=== PATIENT | female | born 1960 | race African-American/Black ===

== ENCOUNTER 2017-05-24 08:03 | Inpatient (IN) | payer MEDICAID ==
[~2017-05-24] VITALS: Ht 144.8 cm; Wt 59.2 kg
[2017-05-24] VITALS (16 sets, daily range): BP systolic 97–149; BP diastolic 50–94
[2017-05-24] MEDS ORDERED: FAMOTIDINE 20MG/2ML VIAL IV ONE (08:45)
[2017-05-24] MEDS ORDERED: DIPHENHYDRAMINE 50MG/ML VIAL IV ONE (08:45)
[2017-05-24] MEDS ORDERED: METHYLPREDNISOLONE SOD SUCC 125 MG/2 ML VIAL IV ONE (08:45)
[2017-05-24] MEDS ORDERED: EPINEPHRINE 1:1000 1 MG/ML AMP SUBCUT ONE (08:45)
[2017-05-24 09:06] LABS: BASOPHILS % 0.3 % (0.0-2.0); HEMATOCRIT. 35.9 % (36.0-48.0); HEMOGLOBIN. 12.2 g/dL (12.0-16.0); LYMPHOCYTES % 9.8 % (20.0-50.0); MEAN CORPUSCULAR HEMOGLOBIN 32.8 pg (28.0-32.0); MEAN CORPUSCULAR VOLUME 96.6 fL (81.0-99.0); MEAN PLATELET VOLUME 6.4 fl (7.4-10.4); MONOCYTES % 6.5 % (2.0-8.0); NEUTROPHILS % 78.4 % (40.0-76.0); PLATELET 345 x1000/uL (130-400); RED BLOOD CELL COUNT 3.71 mill/uL (4.2-5.4); RED CELL DISTRIBUTION WIDTH 12.8 % (11.6-14.6)
[2017-05-24 09:12] LABS: INR 1.1; PROTHROMBIN TIME 11.4 sec (9.4-11.6)
[2017-05-24 09:15] LABS: CHLORIDE 99 mEq/L (98-107)
[2017-05-24] MEDS ORDERED: LORAZEPAM 2MG/ML CPJ IM ONE (09:15)
[2017-05-24] MEDS ORDERED: SODIUM CHLORIDE 0.9% 1,000 ML IV ONE (09:16)
[2017-05-24] MEDS ORDERED: LORAZEPAM 2MG/ML CPJ IV ONE (09:30)
[2017-05-24] MEDS ORDERED: LEVETIRACETAM 1000MG/100ML 100 ML IV ONE (10:15)
[2017-05-24 12:22] LABS: CLARITY URINE CLEAR (CLEAR); COLOR URINE YELLOW (YELLOW); KETONES URINE NEGATIVE (NEGATIVE); LEUKOCYTE ESTERASE URINE NEGATIVE (NEGATIVE); NITRITE URINE NEGATIVE (NEGATIVE); OCCULT BLOOD URINE NEGATIVE (NEGATIVE); PROTEIN URINE NEGATIVE (NEGATIVE); SPECIFIC GRAVITY URINE 1.011 (1.005-1.030); UROBILINOGEN URINE 0.2 E.U./dL (0.2-1.0)
[2017-05-24 13:27] LABS: *AMPHETAMINES SCREEN URINE NEGATIVE (NEGATIVE); *BARBITURATES SCREEN URINE NEGATIVE (NEGATIVE); *BENZODIAZEPINES SCREEN URINE NEGATIVE (NEGATIVE); *COCAINE SCREEN URINE PRESUMTIVE POSITIVE (NEGATIVE); CANNABINOID URINE SCREEN PRESUMTIVE POSITIVE (NEGATIVE); METHADONE URINE SCREEN NEGATIVE (NEGATIVE); OPIATES URINE SCREEN NEGATIVE (NEGATIVE); PHENCYCLIDINE URINE SCREEN NEGATIVE (NEGATIVE)
[2017-05-24] MEDS: SODIUM CHLORIDE 0.9% 1,000 ML IV SCH (15:01)
[2017-05-24] MEDS: FAMOTIDINE 20MG/2ML VIAL IV SCH (15:01)
[2017-05-24] MEDS: METHYLPREDNISOLONE SOD SUCC 40 MG/ML VIAL IV SCH ×2 (15:02→22:53)
[2017-05-24] MEDS: DIPHENHYDRAMINE 50MG/ML VIAL IV SCH ×2 (15:02→17:03)
[2017-05-24] MEDS: LORAZEPAM 2MG/ML CPJ IV PRN (17:03)
[2017-05-24] MEDS ORDERED: LEVETIRACETAM 500 MG in SODIUM CHLORIDE 0.9% 100 ML IV SCH (22:30)
[2017-05-24] MEDS: LEVETIRACETAM 500MG PREMIX 100 ML IV SCH (22:56)
[2017-05-25] VITALS (19 sets, daily range): BP systolic 100–145; BP diastolic 52–90
[2017-05-25] MEDS: DIPHENHYDRAMINE 50MG/ML VIAL IV SCH ×8 (00:51→23:43)
[2017-05-25] MEDS: METHYLPREDNISOLONE SOD SUCC 40 MG/ML VIAL IV SCH (06:14)
[2017-05-25] MEDS: SODIUM CHLORIDE 0.9% 1,000 ML IV SCH ×2 (07:05→12:25)
[2017-05-25] MEDS: LEVETIRACETAM 500MG PREMIX 100 ML IV SCH ×2 (08:03→21:20)
[2017-05-25] MEDS: FAMOTIDINE 20MG/2ML VIAL IV SCH ×3 (08:03→21:20)
[2017-05-25] MEDS ORDERED: THROAT LOZENGES-BENZOCAINE/MENTH/CETYLPYRD CL LOZENGES MM PRN (09:15)
[2017-05-25] MEDS: ACETAMINOPHEN 650MG/20.3ML UDC PO PRN ×2 (09:23→22:50)
[2017-05-25 09:27] LABS: BASOPHILS % 0.4 % (0.0-2.0); EOSINOPHILS % 4.3 % (0.0-5.0); HEMATOCRIT. 27.9 % (36.0-48.0); LYMPHOCYTES % 9.2 % (20.0-50.0); MEAN CORPUSCULAR VOLUME 96.7 fL (81.0-99.0); MEAN PLATELET VOLUME 6.6 fl (7.4-10.4); MONOCYTES % 5.4 % (2.0-8.0); NEUTROPHILS % 80.7 % (40.0-76.0); PLATELET 281 x1000/uL (130-400); RED BLOOD CELL COUNT 2.89 mill/uL (4.2-5.4); RED CELL DISTRIBUTION WIDTH 12.6 % (11.6-14.6)
[2017-05-25 09:33] LABS: CHLORIDE 106 mEq/L (98-107)
[2017-05-25 09:42] LABS: HEMOGLOBIN. 9.5 g/dL (12.0-16.0)
[2017-05-25 09:45] LABS: HDL CHOLESTEROL 47 mg/dL (40-59); LDL CHOLESTEROL 135 mg/dL (5-100)
[2017-05-25] MEDS: METHYLPREDNISOLONE SOD SUCC 125 MG/2 ML VIAL IV SCH ×3 (11:18→23:43)
[2017-05-25 16:29] LABS: HEMATOCRIT 27.6 % (36.0-48.0); HEMOGLOBIN 9.5 g/dL (12.0-16.0)
[2017-05-25 16:49] LABS: CREATINE KINASE 133 IU/L (26-192); CREATINE KINASE MB FRACTION < 0.5 ng/mL (0.5-3.6)
[2017-05-26] VITALS (41 sets, daily range): BP systolic 117–157; BP diastolic 60–112
[2017-05-26] MEDS: SODIUM CHLORIDE 0.9% 1,000 ML IV SCH ×2 (01:30→14:44)
[2017-05-26] MEDS: METHYLPREDNISOLONE SOD SUCC 125 MG/2 ML VIAL IV SCH (05:33)
[2017-05-26] MEDS: DIPHENHYDRAMINE 50MG/ML VIAL IV SCH ×4 (05:34→17:28)
[2017-05-26 07:10] LABS: HEMATOCRIT 31.8 % (36.0-48.0); HEMOGLOBIN 10.6 g/dL (12.0-16.0); MEAN CORPUSCULAR HEMOGLOBIN 32.1 pg (28.0-32.0); PLATELET 344 x1000/uL (130-400); RED BLOOD CELL COUNT 3.31 mill/uL (4.2-5.4); RED CELL DISTRIBUTION WIDTH 12.9 % (11.6-14.6)
[2017-05-26 07:33] LABS: CHLORIDE 107 mEq/L (98-107)
[2017-05-26 08:03] LABS: T4 FREE 0.64 ng/dL (0.76-1.46)
[2017-05-26] MEDS: LORAZEPAM 2MG/ML CPJ IV PRN (09:20)
[2017-05-26] MEDS: FAMOTIDINE 20MG/2ML VIAL IV SCH ×2 (09:29→21:17)
[2017-05-26] MEDS: LEVETIRACETAM 500MG PREMIX 100 ML IV SCH ×2 (09:29→21:35)
[2017-05-26] MEDS ORDERED: LORAZEPAM 2MG/ML CPJ IV ONE (09:30)
[2017-05-26] MEDS: METHYLPREDNISOLONE SOD SUCC 40 MG/ML VIAL IV SCH ×2 (14:44→21:18)
[2017-05-26] MEDS: PHENYTOIN SODIUM EXTENDED 100MG CAPSULE PO SCH (21:18)
[2017-05-27] VITALS (41 sets, daily range): BP systolic 112–169; BP diastolic 35–104
[2017-05-27] MEDS: DIPHENHYDRAMINE 50MG/ML VIAL IV SCH ×4 (02:14→17:26)
[2017-05-27] MEDS: SODIUM CHLORIDE 0.9% 1,000 ML IV SCH ×2 (02:50→17:45)
[2017-05-27] MEDS: METHYLPREDNISOLONE SOD SUCC 40 MG/ML VIAL IV SCH ×3 (05:49→21:38)
[2017-05-27 05:56] LABS: HEMOGLOBIN 10.3 g/dL (12.0-16.0); MEAN CORPUSCULAR HEMOGLOBIN 33.3 pg (28.0-32.0); MEAN CORPUSCULAR VOLUME 97.3 fL (81.0-99.0); PLATELET 292 x1000/uL (130-400); RED BLOOD CELL COUNT 3.09 mill/uL (4.2-5.4); RED CELL DISTRIBUTION WIDTH 12.6 % (11.6-14.6)
[2017-05-27 06:12] LABS: CHLORIDE 108 mEq/L (98-107)
[2017-05-27] MEDS: FAMOTIDINE 20MG/2ML VIAL IV SCH ×2 (09:46→21:39)
[2017-05-27] MEDS: LEVETIRACETAM 500MG TABLET PO SCH ×2 (11:00→21:39)
[2017-05-27] MEDS ORDERED: AMLODIPINE 5MG TABLET PO NR (16:45)
[2017-05-27] MEDS: CARBAMAZEPINE 100MG TABLET CHEW PO SCH (17:26)
[2017-05-27] MEDS: PHENYTOIN SODIUM EXTENDED 100MG CAPSULE PO SCH (21:39)
[2017-05-28] VITALS (15 sets, daily range): BP systolic 122–167; BP diastolic 64–101
[2017-05-28] MEDS: DIPHENHYDRAMINE 50MG/ML VIAL IV SCH ×4 (00:23→17:58)
[2017-05-28] MEDS: METHYLPREDNISOLONE SOD SUCC 40 MG/ML VIAL IV SCH ×2 (05:37→17:58)
[2017-05-28] MEDS: CARBAMAZEPINE 100MG TABLET CHEW PO SCH ×2 (06:24→17:58)
[2017-05-28 07:20] LABS: BASOPHILS % 0.4 % (0.0-2.0); EOSINOPHILS % 1.2 % (0.0-5.0); HEMATOCRIT. 30.5 % (36.0-48.0); HEMOGLOBIN. 10.1 g/dL (12.0-16.0); LYMPHOCYTES % 23.8 % (20.0-50.0); MEAN CORPUSCULAR HEMOGLOBIN 32.1 pg (28.0-32.0); MEAN CORPUSCULAR VOLUME 96.4 fL (81.0-99.0); MEAN PLATELET VOLUME 6.2 fl (7.4-10.4); NEUTROPHILS % 67.6 % (40.0-76.0); PLATELET 314 x1000/uL (130-400); RED BLOOD CELL COUNT 3.16 mill/uL (4.2-5.4); RED CELL DISTRIBUTION WIDTH 12.6 % (11.6-14.6)
[2017-05-28 08:15] LABS: CHLORIDE 108 mEq/L (98-107)
[2017-05-28 08:36] LABS: TROPONIN I < 0.02 ng/mL (0.00-0.04)
[2017-05-28] MEDS: AMLODIPINE 5MG TABLET PO SCH (09:29)
[2017-05-28] MEDS: LEVETIRACETAM 500MG TABLET PO SCH ×2 (09:29→20:47)
[2017-05-28] MEDS: FAMOTIDINE 20MG/2ML VIAL IV SCH ×2 (09:30→20:47)
[2017-05-28] MEDS ORDERED: ACETAMINOPHEN 325MG TABLET PO PRN (11:15)
[2017-05-28] MEDS ORDERED: HYDROCODONE/ACETAMINOPHEN 5/325MG TABLET PO PRN (13:30)
[2017-05-28] MEDS ORDERED: MORPHINE SULFATE 4 MG/ML CPJ (NOT FOR IM USE) IV PRN (13:45)
[2017-05-28] MEDS ORDERED: BARIUM SULFATE 176 GM SUSP.RECON ONE (14:19)
[2017-05-28] MEDS ORDERED: LORAZEPAM 2MG/ML CPJ IV PRN (16:00)
[2017-05-28] MEDS: SODIUM CHLORIDE 0.9% 1,000 ML IV SCH (16:00)
[2017-05-28] MEDS ORDERED: IBUPROFEN 400MG TABLET PO PRN (16:15)
[2017-05-28] MEDS ORDERED: PHEN100C12 PO (17:03)
[2017-05-28] MEDS ORDERED: MELO-106 PO (17:03)
[2017-05-28] MEDS ORDERED: BENA1TAB19 PO (17:03)
[2017-05-28] MEDS ORDERED: CARB200T PO (17:03)
[2017-05-28] MEDS: PHENYTOIN SODIUM EXTENDED 100MG CAPSULE PO SCH (20:47)
[2017-05-29] VITALS (10 sets, daily range): BP systolic 115–155; BP diastolic 58–96
[2017-05-29] MEDS: DIPHENHYDRAMINE 50MG/ML VIAL IV SCH ×4 (00:12→17:25)
[2017-05-29] MEDS: SODIUM CHLORIDE 0.9% 1,000 ML IV SCH ×2 (05:21→20:27)
[2017-05-29] MEDS: METHYLPREDNISOLONE SOD SUCC 40 MG/ML VIAL IV SCH (05:21)
[2017-05-29 07:21] LABS: MEAN CORPUSCULAR HEMOGLOBIN 32.3 pg (28.0-32.0); MEAN CORPUSCULAR VOLUME 97.3 fL (81.0-99.0); PLATELET 296 x1000/uL (130-400); RED BLOOD CELL COUNT 3.09 mill/uL (4.2-5.4); RED CELL DISTRIBUTION WIDTH 12.7 % (11.6-14.6)
[2017-05-29 07:56] LABS: CHLORIDE 110 mEq/L (98-107)
[2017-05-29] MEDS: CARBAMAZEPINE 100MG TABLET CHEW PO SCH ×2 (08:05→17:25)
[2017-05-29] MEDS: LEVETIRACETAM 500MG TABLET PO SCH ×2 (08:09→20:27)
[2017-05-29] MEDS: AMLODIPINE 5MG TABLET PO SCH (08:09)
[2017-05-29] MEDS: FAMOTIDINE 20MG/2ML VIAL IV SCH (08:09)
[2017-05-29] MEDS ORDERED: IOHEXOL-300 100 ML BOTTLE ONE (10:17)
[2017-05-29] MEDS ORDERED: LORAZEPAM 2MG/ML CPJ IV NR (10:30)
[2017-05-29 17:59] LABS: CREATINE KINASE 38 IU/L (26-192); CREATINE KINASE MB FRACTION < 0.5 ng/mL (0.5-3.6)
[2017-05-29] MEDS: FAMOTIDINE 20MG TABLET PO SCH (20:27)
[2017-05-29] MEDS: PHENYTOIN SODIUM EXTENDED 100MG CAPSULE PO SCH (20:27)
[2017-05-30] VITALS (12 sets, daily range): BP systolic 99–144; BP diastolic 56–84
[2017-05-30] MEDS: DIPHENHYDRAMINE 50MG/ML VIAL IV SCH ×5 (00:13→23:28)
[2017-05-30 06:39] LABS: BASOPHILS % 0.7 % (0.0-2.0); EOSINOPHILS % 2.7 % (0.0-5.0); HEMATOCRIT. 31.3 % (36.0-48.0); HEMOGLOBIN. 10.5 g/dL (12.0-16.0); LYMPHOCYTES % 46.6 % (20.0-50.0); MEAN CORPUSCULAR HEMOGLOBIN 32.3 pg (28.0-32.0); MEAN CORPUSCULAR VOLUME 96.6 fL (81.0-99.0); MEAN PLATELET VOLUME 6.6 fl (7.4-10.4); MONOCYTES % 6.6 % (2.0-8.0); NEUTROPHILS % 43.4 % (40.0-76.0); PLATELET 325 x1000/uL (130-400); RED BLOOD CELL COUNT 3.24 mill/uL (4.2-5.4); RED CELL DISTRIBUTION WIDTH 12.7 % (11.6-14.6)
[2017-05-30 07:25] LABS: CHLORIDE 108 mEq/L (98-107)
[2017-05-30] MEDS: SODIUM CHLORIDE 0.9% 1,000 ML IV SCH ×2 (08:49→20:46)
[2017-05-30] MEDS: CARBAMAZEPINE 100MG TABLET CHEW PO SCH (08:50)
[2017-05-30] MEDS: PREDNISONE 20MG TABLET PO SCH (08:50)
[2017-05-30] MEDS: FAMOTIDINE 20MG TABLET PO SCH ×2 (08:50→20:44)
[2017-05-30] MEDS: LEVETIRACETAM 500MG TABLET PO SCH ×2 (08:50→20:44)
[2017-05-30] MEDS: AMLODIPINE 5MG TABLET PO SCH (08:51)
[2017-05-30] MEDS ORDERED: POTASSIUM CHLORIDE 20MEQ TABLET SR PO NR (10:15)
[2017-05-30] MEDS: CARBAMAZEPINE 200MG TABLET PO SCH (17:42)
[2017-05-30] MEDS: PHENYTOIN SODIUM EXTENDED 100MG CAPSULE PO SCH (20:44)
[2017-05-31] VITALS (12 sets, daily range): BP systolic 107–150; BP diastolic 66–97
[2017-05-31] MEDS: SODIUM CHLORIDE 0.9% 1,000 ML IV SCH ×2 (06:30→17:29)
[2017-05-31] MEDS: DIPHENHYDRAMINE 50MG/ML VIAL IV SCH (07:12)
[2017-05-31 08:01] LABS: BASOPHILS % 0.6 % (0.0-2.0); EOSINOPHILS % 1.6 % (0.0-5.0); HEMATOCRIT. 29.5 % (36.0-48.0); MEAN CORPUSCULAR HEMOGLOBIN 32.3 pg (28.0-32.0); MEAN PLATELET VOLUME 6.7 fl (7.4-10.4); MONOCYTES % 6.6 % (2.0-8.0); NEUTROPHILS % 51.2 % (40.0-76.0); PLATELET 296 x1000/uL (130-400); RED BLOOD CELL COUNT 3.08 mill/uL (4.2-5.4); RED CELL DISTRIBUTION WIDTH 12.8 % (11.6-14.6)
[2017-05-31 08:23] LABS: CHLORIDE 108 mEq/L (98-107)
[2017-05-31] MEDS: PREDNISONE 20MG TABLET PO SCH (08:34)
[2017-05-31] MEDS: CARBAMAZEPINE 200MG TABLET PO SCH (08:35)
[2017-05-31] MEDS: LEVETIRACETAM 500MG TABLET PO SCH ×2 (08:35→21:49)
[2017-05-31] MEDS: AMLODIPINE 5MG TABLET PO SCH (08:35)
[2017-05-31] MEDS: FAMOTIDINE 20MG TABLET PO SCH ×2 (08:35→21:48)
[2017-05-31] MEDS ORDERED: DIPHENHYDRAMINE 50MG/ML VIAL IV PRN (12:15)
[2017-05-31] MEDS: CARBAMAZEPINE 100MG TABLET CHEW PO SCH (17:26)
[2017-05-31] MEDS: PHENYTOIN SODIUM EXTENDED 100MG CAPSULE PO SCH (21:48)
[2017-06-01] VITALS: BP 139/78
[2017-06-01 02:00] VITALS: BP 129/54
[2017-06-01 04:00] VITALS: BP 116/76
[2017-06-01 06:00] VITALS: BP 120/81
[2017-06-01] MEDS: SODIUM CHLORIDE 0.9% 1,000 ML IV SCH (06:45)
[2017-06-01] MEDS ORDERED: PREDNISONE 20MG TABLET PO SCH (08:00)
[2017-06-01] MEDS: LEVETIRACETAM 500MG TABLET PO SCH (08:10)
[2017-06-01] MEDS: FAMOTIDINE 20MG TABLET PO SCH (08:10)
[2017-06-01] MEDS: AMLODIPINE 5MG TABLET PO SCH (08:10)
[2017-06-01] MEDS: CARBAMAZEPINE 100MG TABLET CHEW PO SCH ×2 (08:11→18:05)
[2017-06-01 08:12] VITALS: BP 125/66
[2017-06-01 12:31] LABS: BASOPHILS % 0.3 % (0.0-2.0); EOSINOPHILS % 0.4 % (0.0-5.0); HEMATOCRIT. 34.5 % (36.0-48.0); HEMOGLOBIN. 11.6 g/dL (12.0-16.0); LYMPHOCYTES % 13.5 % (20.0-50.0); MEAN CORPUSCULAR HEMOGLOBIN 32.7 pg (28.0-32.0); MEAN CORPUSCULAR VOLUME 97.5 fL (81.0-99.0); NEUTROPHILS % 82.8 % (40.0-76.0); RED BLOOD CELL COUNT 3.53 mill/uL (4.2-5.4); RED CELL DISTRIBUTION WIDTH 12.8 % (11.6-14.6)
[2017-06-01 12:35] LABS: CHLORIDE 107 mEq/L (98-107)
== END 2017-06-01 18:10 | disposition home or self-care (01) | DRG 133 ==
LOC: ER 08:30 → 3WST 08:47 → EDBEDREQSVC 10:19 → EDBEDREQ 10:20 → SUPCPDRO 10:57 → ENRESERV 11:56 → CANRESERV 11:57 → ENRESERV 11:57 → 3WST 14:18 → MICUNO 05-26 11:46 → 5EST 05-28 10:06
PROVIDERS: ADMIT Internal Medicine; ATTEND Internal Medicine
PROC: 30233L1 Transfusion of Nonautologous Fresh Plasma into Peripheral Vein, Percutaneous Approach (ICD-10-PCS; 2017-05-24)
PROC: 30233K1 Transfusion of Nonautologous Frozen Plasma into Peripheral Vein, Percutaneous Approach (ICD-10-PCS; 2017-05-24)
PROC: 4A00X4Z Measurement of Central Nervous Electrical Activity, External Approach (ICD-10-PCS; principal; 2017-05-25)
DX: J96.00 Acute respiratory failure, unspecified whether with hypoxia or hypercapnia (principal); E87.2 Acidosis; E46 Unspecified protein-calorie malnutrition; D69.6 Thrombocytopenia, unspecified; J44.1 Chronic obstructive pulmonary disease with (acute) exacerbation; I11.9 Hypertensive heart disease without heart failure; M62.82 Rhabdomyolysis; T78.3XXA Angioneurotic edema, initial encounter; G40.909 Epilepsy, unspecified, not intractable, without status epilepticus; T42.0X5A Adverse effect of hydantoin derivatives, initial encounter; R73.9 Hyperglycemia, unspecified; F14.10 Cocaine abuse, uncomplicated; B19.20 Unspecified viral hepatitis C without hepatic coma; D64.9 Anemia, unspecified; E05.00 Thyrotoxicosis with diffuse goiter without thyrotoxic crisis or storm; E87.6 Hypokalemia; F17.210 Nicotine dependence, cigarettes, uncomplicated; F32.9 Major depressive disorder, single episode, unspecified; Z60.2 Problems related to living alone; F41.9 Anxiety disorder, unspecified; J96.01 Acute respiratory failure with hypoxia; Z91.14 Patient's other noncompliance with medication regimen; Z91.19 Patient's noncompliance with other medical treatment and regimen; Z99.81 Dependence on supplemental oxygen; Z88.5 Allergy status to narcotic agent; Z88.0 Allergy status to penicillin; Z68.28 Body mass index [BMI] 28.0-28.9, adult
CPT/HCPCS: 36415; 36430; 70450; 70470; 70490; 71045; 74230; 76536; 80048; 80053; 80061; 80185; 80305; 81003; 82550; 82553; 82962; 83036; 84439; 84443; 84481; 84484; 85014; 85018; 85025; 85027; 85610; 86850; 86900; 86927; 87086; 92610; 92611; 93005; 93306; 93970; 96361; 96372; 96374; 96375; 97110; 97112; 97162; 99291; 99406; A6261; G0482; J0171; J1200; J1953; J2060; J2920; J2930; J3490; J7030; J7050; J7512; P9017; Q9967

== ENCOUNTER 2020-04-12 16:25 | Emergency (ER) | payer MEDICAID ==
[~2020-04-12] VITALS: Ht 149.9 cm; Wt 55.0 kg
[~2020-04-12 16:25] MED LIST: CARB200T PO; MELO-106 PO; PHEN100C12 PO
[2020-04-12] MEDS ORDERED: IBUPROFEN 600MG TABLET PO ONE (17:30)
[2020-04-12 20:05] VITALS: BP 155/86
== END 2020-04-12 20:09 | disposition home or self-care (01) ==
LOC: ER 16:25
DX: S92.351A Displaced fracture of fifth metatarsal bone, right foot, initial encounter for closed fracture (principal); M79.671 Pain in right foot; M25.571 Pain in right ankle and joints of right foot; M25.561 Pain in right knee; I10 Essential (primary) hypertension; R56.9 Unspecified convulsions; W01.0XXA Fall on same level from slipping, tripping and stumbling without subsequent striking against object, initial encounter; Y93.9 Activity, unspecified; Y92.9 Unspecified place or not applicable; Z88.0 Allergy status to penicillin; Z88.6 Allergy status to analgesic agent
CPT/HCPCS: 29515; 73560; 73610; 73630; 99284; Z7610